=== PATIENT | female | born 1975 | race Two or more races ===

== ENCOUNTER 2023-02-04 10:17 | Emergency (ER) | payer OTHER ==
[~2023-02-04] VITALS: Ht 154.9 cm; Wt 49.9 kg
[~2023-02-04 10:17] MED LIST: FERRO-TIME325 MG PO; PENICILLIN V P500 MG PO; PRENATAL CAPLE1 EACH PO
== END 2023-02-04 13:29 | disposition home or self-care (01) ==
LOC: ER 10:17
DX: M54.50 Low back pain, unspecified (principal); N39.0 Urinary tract infection, site not specified

== ENCOUNTER → 2023-03-13 | Emergency (ER) | payer OTHER ==
[~2023-03-13] VITALS: Ht 157.5 cm; Wt 49.9 kg
== END | disposition home or self-care (01) ==
LOC: ER 18:44
DX: M94.0 Chondrocostal junction syndrome [Tietze] (principal); R53.81 Other malaise